=== PATIENT | male | born 1990 | race Two or more races ===

== ENCOUNTER 2021-08-15 12:50 | Emergency (ER) | payer OTHER ==
[~2021-08-15] VITALS: Ht 170.2 cm; Wt 81.6 kg
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
[2021-08-15] MEDS ORDERED: FENTANYL PF 100MCG/2ML AMPUL IM ONE (13:00)
[2021-08-15] MEDS ORDERED: FENTANYL PF 100MCG/2ML AMPUL ONE (13:01)
--- NOTE | 2021-08-15 13:24 | NUR ---
TAKEN TO CT VIA [facility]
[2021-08-15] MEDS ORDERED: AMOX-430 PO (15:22)
[2021-08-15] MEDS ORDERED: HYDR-4209 PO (15:22)
--- NOTE | 2021-08-15 15:31 | NUR ---
RECEIVED VERBAL ORDER OF MORPHINE 4MG AND ZOFRAN 4MG
[2021-08-15] MEDS ORDERED: ONDANSETRON HCL/PF 4 MG/2 ML VIAL ONE (15:41)
[2021-08-15] MEDS ORDERED: MORPHINE SULFATE INJ 4 MG/ML DISP.SYRIN ONE (15:41)
[2021-08-15] MEDS ORDERED: MORPHINE SULFATE INJ 2 MG/ML DISP.SYRIN IM ONE (16:00)
[2021-08-15] MEDS ORDERED: MORPHINE SULFATE INJ 2 MG/ML DISP.SYRIN IV ONE (16:00)
[2021-08-15] MEDS ORDERED: ONDANSETRON HCL/PF 4 MG/2 ML VIAL IM ONE (16:00)
[2021-08-15] MEDS ORDERED: ONDANSETRON HCL/PF 4 MG/2 ML VIAL IV ONE (16:00)
[2021-08-15 16:02] VITALS: BP 121/79
--- NOTE | 2021-08-15 16:02 | NUR ---
Patient discharged to home in stable condition. Written and verbal after care instructions given. Patient verbalizes understanding of instruction.
== END 2021-08-15 16:03 | disposition home or self-care (01) ==
LOC: ER 12:58
DX: S02.2XXA Fracture of nasal bones, initial encounter for closed fracture (principal); S01.511A Laceration without foreign body of lip, initial encounter; S01.81XA Laceration without foreign body of other part of head, initial encounter; S01.21XA Laceration without foreign body of nose, initial encounter; R51.9 Headache, unspecified; M54.2 Cervicalgia; Z79.899 Other long term (current) drug therapy; V27.4XXA Motorcycle driver injured in collision with fixed or stationary object in traffic accident, initial encounter; Y93.89 Activity, other specified; Y92.89 Other specified places as the place of occurrence of the external cause; Y99.8 Other external cause status
CPT/HCPCS: 99284; 72125; 12015; 73130; 70450; 70486; 96372 ×2; J3010; J2270; J2405

== ENCOUNTER 2021-08-24 09:36 | Emergency (ER) | payer OTHER ==
[~2021-08-24] VITALS: Ht 180.3 cm; Wt 86.2 kg
[~2021-08-24 09:36] MED LIST: AMOX-430 PO; HYDR-4209 PO
[2021-08-24 09:42] VITALS: BP 139/75
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
--- NOTE | 2021-08-24 09:55 | NUR ---
AT BEDSIDE W/ PT.
--- NOTE | 2021-08-24 10:08 | NUR ---
Patient discharged to home in stable condition. Written and verbal after care instructions given. Patient verbalizes understanding of instruction.
== END 2021-08-24 10:08 | disposition home or self-care (01) ==
LOC: ER 09:46
DX: Z48.02 Encounter for removal of sutures (principal); S01.81XD Laceration without foreign body of other part of head, subsequent encounter; Z79.899 Other long term (current) drug therapy; X58.XXXD Exposure to other specified factors, subsequent encounter